=== PATIENT | female | born 1965 | race Caucasian/White ===

== ENCOUNTER 2018-03-28 10:12 | Emergency (ER) | payer MEDICAID ==
[~2018-03-28] VITALS: Ht 157.5 cm; Wt 79.8 kg
[~2018-03-28 10:12] MED LIST: ASPI81EC PO; AZIT250 PO; CYCL10; CYCL10 PO; ERYT1OIN RIGHTEYE; HYDACE10B PO; HYDACE5 PO; HYDR120LO; IBUP600 PO; IBUP800; IBUP800 PO; Imitrex50 MG; Norco 5-325 Ta1 EACH PO; OMEP20ER; Omeprazole20 M1; PENVK500 PO; PRED20 PO; TRAM50 PO; TRAZ50; UNKNOWN ABX
[2018-03-28] MEDS ORDERED: CYCL10 PO (10:44)
[2018-03-28] MEDS ORDERED: KETO10 PO (10:44)
== END 2018-03-28 11:06 | disposition home or self-care (01) ==
LOC: ER 10:12
DX: S46.001A Unspecified injury of muscle(s) and tendon(s) of the rotator cuff of right shoulder, initial encounter (principal); X58.XXXA Exposure to other specified factors, initial encounter; Z79.899 Other long term (current) drug therapy; I10 Essential (primary) hypertension
CPT/HCPCS: 96372; 99283-25; J1100; J1885

== ENCOUNTER → 2020-02-15 | Outpatient (CLI) | payer OTHER ==
[~2020-02-15] MED LIST changes: +KETO10 PO
[2020-02-17 13:09] LABS: CHLAMYDIA BY NAA Negative (Negative); GONOCOCCUS BY NAA Negative (Negative); TRICH VAG BY NAA Negative (Negative)
== END | disposition home or self-care (01) ==
LOC: LAB EV 16:05 → LAB SHORT 16:05
PROVIDERS: Family Medicine
DX: Z11.3 Encounter for screening for infections with a predominantly sexual mode of transmission (principal)
CPT/HCPCS: 87491; 87591; 87661

== ENCOUNTER → 2020-04-17 | Outpatient (CLI) | payer OTHER | END | disposition home or self-care (01) | LOC: PLD 17:57 → LAB SHORT 17:57 | DX: J02.9 Acute pharyngitis, unspecified (principal) | CPT/HCPCS: 87081 ==

== ENCOUNTER → 2020-04-24 | Outpatient (CLI) | payer OTHER ==
[2020-04-26 17:39] LABS: CORONAVIRUS (COVID19) CSH-NRL Negative (Negative)
== END ==
LOC: LAB 14:43 → LAB SHORT 14:43
PROVIDERS: Chiropractor
DX: R05 Cough (principal); Z20.828 Contact with and (suspected) exposure to other viral communicable diseases
CPT/HCPCS: U0003

== ENCOUNTER 2020-05-30 13:04 | Emergency (ER) | payer OTHER ==
[~2020-05-30] VITALS: Ht 157.5 cm; Wt 83.5 kg
[2020-05-30] MEDS ORDERED: CYCL10 PO (14:10)
== END 2020-05-30 14:28 | disposition home or self-care (01) ==
LOC: ER 13:04
DX: S16.1XXA Strain of muscle, fascia and tendon at neck level, initial encounter (principal); Z88.5 Allergy status to narcotic agent; V58.9XXA Unspecified occupant of pick-up truck or van injured in noncollision transport accident in traffic accident, initial encounter; Y92.410 Unspecified street and highway as the place of occurrence of the external cause
CPT/HCPCS: 72040; 99284-25; A9270

== ENCOUNTER → 2020-08-17 | Outpatient (CLI) | payer OTHER ==
[2020-08-19 11:09] LABS: CHLAMYDIA BY NAA Negative (Negative); GONOCOCCUS BY NAA Negative (Negative); TRICH VAG BY NAA Negative (Negative)
== END | disposition home or self-care (01) ==
LOC: LAB EV 12:07 → LAB SHORT 12:07
PROVIDERS: Family Medicine
DX: Z11.3 Encounter for screening for infections with a predominantly sexual mode of transmission (principal)
CPT/HCPCS: 87491; 87591; 87661